=== PATIENT | female | born 1965 | race Two or more races ===

== ENCOUNTER 2018-03-21 23:58 | Emergency (ER) | payer OTHER ==
[~2018-03-21] VITALS: Ht 154.9 cm; Wt 58.1 kg
== END 2018-03-22 | disposition left against medical advice (07) ==
LOC: ER 23:58
DX: K29.60 Other gastritis without bleeding (principal)

== ENCOUNTER → 2018-04-20 | Outpatient (CLI) | payer OTHER | END | disposition home or self-care (01) | LOC: NUCLEAR 10:00 | DX: M81.0 Age-related osteoporosis without current pathological fracture (principal) ==

== ENCOUNTER 2018-08-01 12:17 | Outpatient (CLI) | payer OTHER | END 2018-08-01 12:26 | disposition home or self-care (01) | LOC: MAMO-SONO 12:17 | DX: Z12.31 Encounter for screening mammogram for malignant neoplasm of breast (principal); M25.571 Pain in right ankle and joints of right foot ==

== ENCOUNTER 2019-01-18 07:27 | Outpatient (CLI) | payer OTHER | END 2019-01-18 07:32 | disposition home or self-care (01) | LOC: SONOGRAMA 07:27 | DX: R10.10 Upper abdominal pain, unspecified (principal) ==

== ENCOUNTER 2020-04-16 09:22 | Emergency (ER) | payer OTHER ==
[~2020-04-16] VITALS: Ht 154.9 cm; Wt 59.9 kg
== END 2020-04-16 10:01 | disposition home or self-care (01) ==
LOC: ER 09:22
DX: M25.512 Pain in left shoulder (principal)

== ENCOUNTER 2021-01-13 10:15 | Outpatient (CLI) | payer OTHER | END 2021-01-13 10:17 | disposition home or self-care (01) | LOC: NUCLEAR 10:15 | PROVIDERS: ATTEND Internal Medicine Hematology & Oncology | DX: M81.0 Age-related osteoporosis without current pathological fracture (principal) ==

== ENCOUNTER 2021-04-08 09:05 | Outpatient (CLI) | payer OTHER | END 2021-04-08 09:12 | disposition home or self-care (01) | LOC: MAMO-SONO 09:05 | PROVIDERS: ATTEND Family Medicine | DX: N60.11 Diffuse cystic mastopathy of right breast (principal); N60.12 Diffuse cystic mastopathy of left breast; Z12.31 Encounter for screening mammogram for malignant neoplasm of breast ==

== ENCOUNTER 2022-07-13 10:41 | Outpatient (CLI) | payer OTHER | END 2022-07-13 11:03 | disposition home or self-care (01) | LOC: SONOGRAMA 10:41 | PROVIDERS: ATTEND Podiatrist Foot Surgery | DX: M72.2 Plantar fascial fibromatosis (principal) ==

== ENCOUNTER 2023-03-03 09:04 | Outpatient (CLI) | payer OTHER | END 2023-03-03 09:15 | disposition home or self-care (01) | LOC: MAMO-SONO 09:04 | PROVIDERS: ATTEND Family Medicine | DX: Z12.31 Encounter for screening mammogram for malignant neoplasm of breast (principal); N60.11 Diffuse cystic mastopathy of right breast; N60.12 Diffuse cystic mastopathy of left breast ==

== ENCOUNTER 2023-03-08 09:11 | Outpatient (CLI) | payer OTHER | END 2023-03-08 09:18 | disposition home or self-care (01) | LOC: NUCLEAR 09:11 | PROVIDERS: ATTEND Family Medicine | DX: I87.2 Venous insufficiency (chronic) (peripheral) (principal) ==

== ENCOUNTER 2023-06-02 09:17 | Outpatient (CLI) | payer OTHER | END 2023-06-02 09:29 | disposition home or self-care (01) | LOC: SONOGRAMA 09:17 | PROVIDERS: ATTEND Internal Medicine Endocrinology, Diabetes & Metabolism | DX: E04.9 Nontoxic goiter, unspecified (principal); E07.81 Sick-euthyroid syndrome ==

== ENCOUNTER 2024-08-20 09:01 | Outpatient (CLI) | payer OTHER | END 2024-08-20 09:07 | disposition home or self-care (01) | LOC: RAD 09:01 | PROVIDERS: ATTEND Internal Medicine | DX: M54.6 Pain in thoracic spine (principal); M54.50 Low back pain, unspecified ==

== ENCOUNTER 2025-07-15 10:51 | Outpatient (CLI) | payer OTHER | END 2025-07-15 10:52 | disposition home or self-care (01) | LOC: NUCLEAR 10:51 | PROVIDERS: ATTEND Internal Medicine | DX: M81.0 Age-related osteoporosis without current pathological fracture (principal) ==